=== PATIENT | female | born 1980 | race Hispanic/Latino ===

== ENCOUNTER 2017-06-07 09:31 | Emergency (ER) | payer MEDICAID, OTHER ==
[2017-06-07 10:15] LABS: BASOPHILS % (AUTO) 0.2 % (0.0-5.0); EOSINOPHILS % (AUTO) 0.4 % (0.0-8.0); HEMATOCRIT 44.1 % (36-48); LYMPHOCYTES % (AUTO) 15.6 % (21.0-51.0); MEAN CORPUSCULAR HEMOGLOBIN 29.8 pg (27.0-33.0); MEAN CORPUSCULAR HGB CONC 34.1 g/dL (32.0-36.0); MEAN CORPUSCULAR VOLUME 87.4 fL (79-99); MONOCYTES % (AUTO) 6.2 % (3.0-13.0); NEUTROPHILS % (AUTO) 77.6 % (40.0-77.0); PLATELET COUNT (AUTO) 304 K/uL (130-400); RED BLOOD CELL COUNT(AUTO) 5.04 MIL/uL (4.00-5.50); RED CELL DISTRIBUTION WIDTH 13.1 % (11.0-15.5); WHITE BLOOD COUNT (AUTO) 14.1 K/uL (4.8-10.8)
[2017-06-07 10:20] LABS: CREATININE 0.8 mg/dL (0.5-1.5); POTASSIUM 3.5 mmol/L (3.5-5.1)
[2017-06-07 10:24] LABS: APPEARANCE,URINE Clear (CLEAR); BILIRUBIN,URINE Negative (NEGATIVE); COLOR,URINE Yellow (YELLOW); GLUCOSE, URINE (UA) TRACE mg/dL (NEGATIVE); KETONES,URINE Trace mg/dL (NEGATIVE); LEUKOCYTE ESTERASE ,URINE Negative (NEGATIVE); NITRATE,URINE Negative (NEGATIVE); OCCULT BLOOD,URINE Negative (NEGATIVE); PH,URINE 5.5 (5.0-8.0); PROTEIN,URINE Negative (NEGATIVE)
[2017-06-07 10:25] LABS: HCG,QUAL RESULT NEGATIVE (NEGATIVE)
[2017-06-07 10:28] LABS: BACTERIA,URINE Rare /HPF (None Seen); MUCUS,URINE Rare LPF (None Seen); RBC,URINE 0-1 /HPF (0-1); SQUAMOUS EPITHELIAL CELL,UR Rare /LPF (0-2); WBC,URINE None Seen /HPF (0-1)
[2017-06-07] MEDS ORDERED: CLINDAMYCIN 600 MG/D5% WATER 50 ML IV ONE (11:30)
[2017-06-07] MEDS ORDERED: KETOROLAC TROMETHAMINE 30MG/ML ONE (11:30)
[2017-08-24] MEDS ORDERED: TRAZ-147 PO (08:11)
== END 2017-06-07 12:50 | disposition home or self-care (01) ==
LOC: EDH 09:31
DX: L03.221 Cellulitis of neck (principal); B95.62 Methicillin resistant Staphylococcus aureus infection as the cause of diseases classified elsewhere; I10 Essential (primary) hypertension; M79.1 Myalgia; Z88.8 Allergy status to other drugs, medicaments and biological substances
CPT/HCPCS: 36415; 70490; 80048; 81001; 81025; 85025; 96365; 96375; 99285; J1885; J3490

== ENCOUNTER 2017-08-22 18:51 | Inpatient (IN) | payer MEDICAID ==
[~2017-08-22] VITALS: Ht 154.9 cm; Wt 86.6 kg
[2017-08-22 19:28] LABS: RAPID GROUP A STREP NEGATIVE (NEGATIVE)
[2017-08-22 19:40] LABS: BASOPHILS % (AUTO) 0.3 % (0.0-5.0); EOSINOPHILS % (AUTO) 0.1 % (0.0-8.0); HEMATOCRIT 51.6 % (36-48); LYMPHOCYTES % (AUTO) 8.7 % (21.0-51.0); MEAN CORPUSCULAR HEMOGLOBIN 30.5 pg (27.0-33.0); MEAN CORPUSCULAR HGB CONC 34.6 g/dL (32.0-36.0); MEAN CORPUSCULAR VOLUME 88.3 fL (79-99); MONOCYTES % (AUTO) 2.4 % (3.0-13.0); NEUTROPHILS % (AUTO) 88.5 % (40.0-77.0); PLATELET COUNT (AUTO) 432 K/uL (130-400); RED BLOOD CELL COUNT(AUTO) 5.84 MIL/uL (4.00-5.50); RED CELL DISTRIBUTION WIDTH 13.6 % (11.0-15.5); WHITE BLOOD COUNT (AUTO) 20.4 K/uL (4.8-10.8)
[2017-08-22] MEDS ORDERED: SODIUM CHLORIDE 0.9% 1000ML 2,000 ML IV ONE (19:47)
[2017-08-22] MEDS ORDERED: ONDANSETRON HCL MDV 20ML 2 MG/ML VIAL ONE (19:47)
[2017-08-22] MEDS ORDERED: ZOSYN 3.375GM+NS 50ML 50 ML IV ONE (20:09)
[2017-08-22 20:13] LABS: INR 0.97 (0.85-1.15); PARTIAL THROMBOPLASTIN TIME 21.4 SEC (26.3-35.5); PROTHROMBIN TIME 10.2 SEC (9.6-11.6)
[2017-08-22 20:18] LABS: CARBON DIOXIDE 25 mmol/L (21-32); CHLORIDE 95 mmol/L (101-111); CREATININE 1.8 mg/dL (0.5-1.5); GLOMERULAR FILTR. RATE CALC 33 mL/min (>60); GLUCOSE,RANDOM 345 mg/dL (70-105); POTASSIUM 4.9 mmol/L (3.5-5.1); SODIUM SERUM 130 mmol/L (136-145); UREA NITROGEN, BLOOD 12 mg/dL (7-18)
[2017-08-22 20:33] LABS: ALANINE AMINOTRANSFERASE 33 U/L (12-78); ALBUMIN 3.4 g/dL (3.5-5.0); ASPARTATE AMINOTRANSFERASE 26 U/L (10-37); BILIRUBIN,TOTAL 0.3 mg/dL (0.2-1.0); CREATINE KINASE MB 0.9 ng/mL (0.5-3.6); CREATINE KINASE, TOTAL 107 U/L (21-232); MYOGLOBIN 91 ng/mL (10-92); TROPONIN I < 0.04 ng/mL (0.00-0.06)
[2017-08-22 21:29] LABS: APPEARANCE,URINE Clear (CLEAR); BILIRUBIN,URINE Negative (NEGATIVE); COLOR,URINE Yellow (YELLOW); GLUCOSE, URINE (UA) 250 mg/dL (NEGATIVE); KETONES,URINE Negative (NEGATIVE); LEUKOCYTE ESTERASE ,URINE Negative (NEGATIVE); NITRATE,URINE Negative (NEGATIVE); OCCULT BLOOD,URINE Nonhemolyzed Trace (NEGATIVE); PROTEIN,URINE POS 1+ (NEGATIVE); UROBILINOGEN,URINE 0.2 mg/dL (0.2-1.0)
[2017-08-22 21:46] LABS: BACTERIA,URINE Rare /HPF (None Seen); WBC,URINE 0-1 /HPF (0-1)
[2017-08-23 01:15] VITALS: BP 111/66
[2017-08-23] MEDS ORDERED: ACETAMINOPHEN 325 MG TAB PO PRN ×2 (02:45)
[2017-08-23] MEDS ORDERED: ONDANSETRON HCL MDV 20ML 2 MG/ML VIAL IVP PRN (02:45)
[2017-08-23 04:00] VITALS: BP 105/68
[2017-08-23] MEDS: ZOSYN 3.375GM+NS 50ML 50 ML IV SCH ×3 (04:20→18:33)
[2017-08-23 06:33] LABS: HEMATOCRIT 39.2 % (36-48); MEAN CORPUSCULAR HEMOGLOBIN 31.3 pg (27.0-33.0); MEAN CORPUSCULAR HGB CONC 35.2 g/dL (32.0-36.0); MEAN CORPUSCULAR VOLUME 88.8 fL (79-99); PLATELET COUNT (AUTO) 308 K/uL (130-400); RED BLOOD CELL COUNT(AUTO) 4.41 MIL/uL (4.00-5.50); RED CELL DISTRIBUTION WIDTH 13.6 % (11.0-15.5); WHITE BLOOD COUNT (AUTO) 13.7 K/uL (4.8-10.8)
[2017-08-23 06:41] LABS: POTASSIUM 3.9 mmol/L (3.5-5.1)
[2017-08-23 08:10] VITALS: BP 105/66
[2017-08-23] MEDS: FAMOTIDINE 20MG TAB 20 MG TAB PO SCH ×2 (09:58→20:23)
[2017-08-23 11:32] VITALS: BP 120/67
[2017-08-23] MEDS: SODIUM CHLORIDE 0.9% 1000ML 1,000 ML IV SCH ×2 (12:27→12:45)
[2017-08-23] MEDS ORDERED: MAG HYDROX/AL HYDROX/SIMETH ES 30 ML SUSP UDCUP PO PRN (14:00)
[2017-08-23] MEDS ORDERED: MAG HYDROX/AL HYDROX/SIMETH ES 30 ML SUSP UDCUP ONE (15:29)
[2017-08-23 15:54] VITALS: BP 132/73
[2017-08-23 20:00] VITALS: BP 122/71
[2017-08-24] VITALS (7 sets, daily range): BP systolic 103–157; BP diastolic 57–85
[2017-08-24] MEDS: SODIUM CHLORIDE 0.9% 1000ML 1,000 ML IV SCH ×3 (00:20→22:28)
[2017-08-24] MEDS: ZOSYN 3.375GM+NS 50ML 50 ML IV SCH ×2 (02:57→10:59)
[2017-08-24 05:11] LABS: BASOPHILS % (AUTO) 0.8 % (0.0-5.0); EOSINOPHILS % (AUTO) 1.5 % (0.0-8.0); HEMATOCRIT 36.4 % (36-48); MEAN CORPUSCULAR HEMOGLOBIN 31.2 pg (27.0-33.0); MEAN CORPUSCULAR HGB CONC 35.5 g/dL (32.0-36.0); MEAN CORPUSCULAR VOLUME 87.8 fL (79-99); MONOCYTES % (AUTO) 5.8 % (3.0-13.0); NEUTROPHILS % (AUTO) 52.9 % (40.0-77.0); PLATELET COUNT (AUTO) 265 K/uL (130-400); RED BLOOD CELL COUNT(AUTO) 4.14 MIL/uL (4.00-5.50); RED CELL DISTRIBUTION WIDTH 13.4 % (11.0-15.5); WHITE BLOOD COUNT (AUTO) 7.6 K/uL (4.8-10.8)
[2017-08-24 05:20] LABS: CREATININE 0.8 mg/dL (0.5-1.5); POTASSIUM 3.5 mmol/L (3.5-5.1)
[2017-08-24] MEDS: FAMOTIDINE 20MG TAB 20 MG TAB PO SCH ×2 (08:05→20:07)
[2017-08-24] MEDS ORDERED: BUPR150T3 PO (08:11)
[2017-08-24] MEDS ORDERED: TRAZ-187 PO (08:11)
[2017-08-24] MEDS ORDERED: LISI30TA4 PO (08:11)
[2017-08-24] MEDS ORDERED: GABA-531 PO (08:11)
[2017-08-24] MEDS ORDERED: METO100T14 PO (08:11)
[2017-08-24] MEDS ORDERED: TRAM50TA4 PO (08:11)
[2017-08-24] MEDS ORDERED: AMIT25TA9 PO (08:11)
[2017-08-24] MEDS ORDERED: HYDR12.54 PO (08:11)
[2017-08-24] MEDS ORDERED: METH500T6 PO (08:11)
[2017-08-24] MEDS ORDERED: METHOCARBAMOL 500MG PO PRN (08:45)
[2017-08-24] MEDS ORDERED: TRAMADOL HCL 50 MG TABLET PO PRN (08:45)
[2017-08-24] MEDS: GABAPENTIN 300 MG CAPSULE PO SCH ×3 (09:00→21:41)
[2017-08-24] MEDS: METOPROLOL TARTRATE 50 MG TAB PO SCH ×2 (09:00→20:07)
[2017-08-24] MEDS: HYDROCHLOROTHIAZIDE 25 MG TABLET PO SCH (09:00)
[2017-08-24] MEDS: LISINOPRIL 10 MG TABLET PO SCH (09:00)
[2017-08-24] MEDS: BUPROPION HCL 150 MG TABLET.SA PO SCH (09:00)
[2017-08-24] MEDS ORDERED: AMOX-429 PO (12:54)
[2017-08-24] MEDS: LEVOFLOXACIN 500 MG/D5W 100 ML 100 ML IV SCH ×2 (20:06→21:41)
[2017-08-24] MEDS: METRONIDAZOLE 500MG/100ML BAG 100 ML IV SCH (20:07)
[2017-08-24] MEDS ORDERED: AMITRIPTYLINE HCL 25 MG TABLET PO SCH (21:00)
[2017-08-24] MEDS ORDERED: TRAZODONE HCL 100 MG TABLET PO SCH (21:00)
[2017-08-25] MEDS: METRONIDAZOLE 500MG/100ML BAG 100 ML IV SCH ×2 (01:57→10:42)
[2017-08-25 04:17] VITALS: BP 130/86
[2017-08-25] MEDS: SODIUM CHLORIDE 0.9% 1000ML 1,000 ML IV SCH ×2 (04:45→14:45)
[2017-08-25 08:00] VITALS: BP 109/60
[2017-08-25] MEDS: HYDROCHLOROTHIAZIDE 25 MG TABLET PO SCH (09:00)
[2017-08-25] MEDS: LISINOPRIL 10 MG TABLET PO SCH (09:00)
[2017-08-25] MEDS: METOPROLOL TARTRATE 50 MG TAB PO SCH (09:00)
[2017-08-25] MEDS: FAMOTIDINE 20MG TAB 20 MG TAB PO SCH (10:42)
[2017-08-25] MEDS: GABAPENTIN 300 MG CAPSULE PO SCH ×2 (10:42→15:05)
[2017-08-25] MEDS: BUPROPION HCL 150 MG TABLET.SA PO SCH (10:42)
[2017-08-25 11:26] VITALS: BP 97/62
[2017-08-25 16:00] VITALS: BP 109/74
== END 2017-08-25 19:05 | disposition home or self-care (01) | DRG 720 ==
LOC: EDH 18:51 → OBSVTOIN 18:52 → EDHIP 18:52 → 3DH 23:33
PROVIDERS: ADMIT Family Medicine; ATTEND Family Medicine
DX: A41.9 Sepsis, unspecified organism (principal); R57.1 Hypovolemic shock; N17.9 Acute kidney failure, unspecified; A04.72 Enterocolitis due to Clostridium difficile, not specified as recurrent; T80.92XA Unspecified transfusion reaction, initial encounter; E66.9 Obesity, unspecified; B96.20 Unspecified Escherichia coli [E. coli] as the cause of diseases classified elsewhere; I10 Essential (primary) hypertension; M79.7 Fibromyalgia; Y84.8 Other medical procedures as the cause of abnormal reaction of the patient, or of later complication, without mention of misadventure at the time of the procedure; F32.9 Major depressive disorder, single episode, unspecified; Z88.8 Allergy status to other drugs, medicaments and biological substances; Z68.36 Body mass index [BMI] 36.0-36.9, adult
CPT/HCPCS: 36415; 71045; 80048; 80053; 81001; 82550; 82553; 83605; 83874; 84484; 85025; 85027; 85610; 85730; 87040; 87088; 87507; 87804; 87880; 93005; 99291; J1956; J2543; J3490; J7030

== ENCOUNTER 2018-11-02 01:46 | Emergency (ER) | payer MEDICAID ==
[~2018-11-02 01:46] MED LIST: AMIT25TA9 PO; AMOX-429 PO; BUPR150T3 PO; GABA-531 PO; HYDR12.54 PO; LISI30TA4 PO; METH500T6 PO; METO100T14 PO; TRAM50TA4 PO; TRAZ-187 PO
[2018-11-02] MEDS ORDERED: SULFAMETHOX-TMP DS 800/160 TAB ONE (02:05)
[2018-11-02] MEDS ORDERED: CEPHALEXIN 500 MG CAPSULE ONE (02:05)
== END 2018-11-02 02:12 | disposition home or self-care (01) ==
LOC: EDH 01:46
DX: L03.311 Cellulitis of abdominal wall (principal); I10 Essential (primary) hypertension; E11.9 Type 2 diabetes mellitus without complications; M79.7 Fibromyalgia; F32.9 Major depressive disorder, single episode, unspecified; Z88.8 Allergy status to other drugs, medicaments and biological substances; Z98.890 Other specified postprocedural states

== ENCOUNTER 2018-11-03 21:02 | Emergency (ER) | payer MEDICAID ==
[2018-11-03] MEDS ORDERED: CLINDAMYCIN HCL 150 MG CAP ONE (22:25)
== END 2018-11-03 22:29 | disposition home or self-care (01) ==
LOC: EDH 21:02
DX: L02.211 Cutaneous abscess of abdominal wall (principal); L03.311 Cellulitis of abdominal wall; I10 Essential (primary) hypertension; E11.9 Type 2 diabetes mellitus without complications; F32.9 Major depressive disorder, single episode, unspecified; Z98.890 Other specified postprocedural states; Z88.8 Allergy status to other drugs, medicaments and biological substances
CPT/HCPCS: 10060

== ENCOUNTER 2019-11-25 16:38 | Emergency (ER) | payer MEDICAID ==
[2019-11-25 17:29] LABS: APPEARANCE,URINE Cloudy (CLEAR); BILIRUBIN,URINE Negative (NEGATIVE); COLOR,URINE Yellow (YELLOW); GLUCOSE, URINE (UA) 250 mg/dL (NEGATIVE); KETONES,URINE Trace mg/dL (NEGATIVE); LEUKOCYTE ESTERASE ,URINE Negative (NEGATIVE); NITRATE,URINE Negative (NEGATIVE); OCCULT BLOOD,URINE Negative (NEGATIVE); PROTEIN,URINE POS 1+ mg/dL (NEGATIVE)
[2019-11-25 17:38] LABS: HCG,QUAL RESULT NEGATIVE (NEGATIVE)
[2019-11-25] MEDS ORDERED: DiphenhydrAMINE HCL 50 MG/ML VIAL ONE (17:41)
[2019-11-25] MEDS ORDERED: KETOROLAC TROMETHAMINE 30MG/ML ONE (17:42)
[2019-11-25] MEDS ORDERED: DEXAMETHASONE SOD PHOSPHATE 4 MG/ML 1ML VIAL ONE (17:42)
[2019-11-25 17:46] LABS: BACTERIA,URINE Few /HPF (None Seen); MUCUS,URINE Moderate LPF (None Seen); RBC,URINE 0-1 /HPF (0-1); SQUAMOUS EPITHELIAL CELL,UR Few /HPF (0-2); WBC,URINE 0-1 /HPF (0-1)
[2019-11-25 18:00] LABS: AMPHET/METH SCREEN,URINE NEGATIVE (NEGATIVE); BARBITURATE SCREEN, URINE NEGATIVE (NEGATIVE); BENZODIAZEPINES SCREEN,URINE NEGATIVE (NEGATIVE); CANNABINOID SCREEN,URINE NEGATIVE (NEGATIVE); COCAINE SCREEN,URINE NEGATIVE (NEGATIVE); OPIATE SCREEN,URINE NEGATIVE (NEGATIVE); PHENCYCLIDINE SCREEN,URINE NEGATIVE (NEGATIVE)
== END 2019-11-25 19:07 | disposition home or self-care (01) ==
LOC: EDH 16:38
DX: R51 Headache (principal); E11.65 Type 2 diabetes mellitus with hyperglycemia; F32.9 Major depressive disorder, single episode, unspecified; I10 Essential (primary) hypertension; Z87.891 Personal history of nicotine dependence; Z88.2 Allergy status to sulfonamides; Z88.1 Allergy status to other antibiotic agents
CPT/HCPCS: 80305; 81001; 81025; 82948; 93005; 96361; 96374; 96375; 99284; J1100; J1200; J1885

== ENCOUNTER 2022-01-29 23:10 | Emergency (ER) | payer MEDICAID ==
[~2022-01-29] VITALS: Ht 154.9 cm; Wt 72.6 kg
[~2022-01-29 23:10] MED LIST changes: +METH-811 PO; -METH500T6 PO
[2022-01-29 23:34] VITALS: BP 145/75
== END 2022-01-30 00:13 | disposition home or self-care (01) ==
LOC: EDH 23:10
DX: F41.9 Anxiety disorder, unspecified (principal); I10 Essential (primary) hypertension; M19.90 Unspecified osteoarthritis, unspecified site; F32.A Depression, unspecified; E11.9 Type 2 diabetes mellitus without complications; M79.7 Fibromyalgia; Z79.899 Other long term (current) drug therapy; Z88.8 Allergy status to other drugs, medicaments and biological substances; Z88.1 Allergy status to other antibiotic agents; Z88.2 Allergy status to sulfonamides

== ENCOUNTER 2023-05-27 23:25 | Emergency (ER) | payer MEDICAID, MEDICARE ==
[~2023-05-27] VITALS: Ht 154.9 cm; Wt 69.4 kg
[2023-05-28 00:01] LABS: HCG,QUALITATIVE URINE NEGATIVE (NEGATIVE)
[2023-05-28 00:02] LABS: BASOPHILS # (AUTO) 0.06 K/uL (0.00-0.20); BASOPHILS % (AUTO) 0.9 % (0.0-5.0); EOSINOPHILS # (AUTO) 0.03 K/uL (0.00-0.70); EOSINOPHILS % (AUTO) 0.4 % (0.0-8.0); HEMATOCRIT 42.7 % (36-48); IMMATURE GRANULOCYTE ABSOLUTE 0.05 K/uL (0-1); LYMPHOCYTES # (AUTO) 1.8 K/uL (1.0-4.8); LYMPHOCYTES % (AUTO) 25.1 % (21.0-51.0); MEAN CORPUSCULAR HEMOGLOBIN 32.1 pg (27.0-33.0); MEAN CORPUSCULAR HGB CONC 34.7 g/dL (32.0-36.0); MEAN CORPUSCULAR VOLUME 92.6 fL (79-99); MONOCYTES # (AUTO) 0.5 K/uL (0.1-1.0); MONOCYTES % (AUTO) 7.6 % (3.0-13.0); NEUTROPHILS # (AUTO) 4.6 K/uL (1.8-7.7); NEUTROPHILS % (AUTO) 65.3 % (40.0-77.0); PLATELET COUNT (AUTO) 415 K/uL (130-400); RED BLOOD CELL COUNT(AUTO) 4.61 MIL/uL (4.00-5.50); RED CELL DISTRIBUTION WIDTH 12.8 % (11.0-15.5)
[2023-05-28 00:12] LABS: CREATININE 0.6 mg/dL (0.5-1.5); POTASSIUM 4.1 mmol/L (3.5-5.1)
[2023-05-28 00:17] LABS: ALBUMIN 3.7 g/dL (3.5-5.0); BILIRUBIN,TOTAL 0.4 mg/dL (0.2-1.0); TOTAL PROTEIN, SERUM 7.4 g/dL (6.0-8.3)
[2023-05-28 00:39] LABS: ADD UA MICROSCOPIC YES; APPEARANCE,URINE CLEAR (CLEAR); BILIRUBIN,URINE NEGATIVE (NEGATIVE); COLOR,URINE Light-Yellow (YELLOW); GLUCOSE, URINE (UA) >=1000 mg/dL (NEGATIVE); KETONES,URINE 150 mg/dL (NEGATIVE); LEUKOCYTE ESTERASE ,URINE NEGATIVE Leu/uL (NEGATIVE); NITRATE,URINE NEGATIVE (NEGATIVE); OCCULT BLOOD,URINE NEGATIVE (NEGATIVE); PH,URINE 5.5 (5.0-8.0); PROTEIN,URINE NEGATIVE (NEGATIVE); UROBILINOGEN,URINE 0.2 mg/dL (0.2-1.0)
[2023-05-28 00:40] LABS: MUCUS,URINE RARE LPF (None Seen); RBC,URINE 0-1 /HPF (0-1); SQUAMOUS EPITHELIAL CELL,UR RARE /HPF (0-2); WBC,URINE 0-1 /HPF (0-1)
[2023-05-28 00:46] LABS: B-TYPE NATRIURETIC PEPTIDE 10 pg/mL (0-100)
[2023-05-28 02:13] VITALS: BP 148/79; PULSE 70; RESP 18; O2SAT 98
== END 2023-05-28 02:13 | disposition home or self-care (01) ==
LOC: EDH 23:25
DX: I10 Essential (primary) hypertension (principal); R51.9 Headache, unspecified; F41.9 Anxiety disorder, unspecified; E11.9 Type 2 diabetes mellitus without complications; F32.A Depression, unspecified; M79.7 Fibromyalgia; F17.200 Nicotine dependence, unspecified, uncomplicated; M19.90 Unspecified osteoarthritis, unspecified site; Z79.899 Other long term (current) drug therapy; Z98.890 Other specified postprocedural states; Z88.1 Allergy status to other antibiotic agents; Z88.2 Allergy status to sulfonamides; Z88.8 Allergy status to other drugs, medicaments and biological substances
CPT/HCPCS: 36415; 71045; 80053; 81001; 81025; 83880; 84484; 85025; 93005

== ENCOUNTER 2024-04-01 08:55 | Emergency (ER) | payer OTHER, MEDICARE ==
[~2024-04-01] VITALS: Ht 154.9 cm; Wt 64.9 kg
[~2024-04-01 08:55] MED LIST changes: -AMIT25TA9 PO; -AMOX-429 PO; -METO100T14 PO; -TRAM50TA4 PO
[2024-04-01 08:56] VITALS: BP 220/123; TEMP 97.8
[2024-04-01 09:34] LABS: BASOPHILS # (AUTO) 0.04 K/uL (0.00-0.20); BASOPHILS % (AUTO) 0.6 % (0.0-5.0); EOSINOPHILS # (AUTO) 0.04 K/uL (0.00-0.70); EOSINOPHILS % (AUTO) 0.6 % (0.0-8.0); HEMATOCRIT 40.5 % (36-48); IMMATURE GRANULOCYTE ABSOLUTE 0.02 K/uL (0-1); LYMPHOCYTES # (AUTO) 1.9 K/uL (1.0-4.8); LYMPHOCYTES % (AUTO) 28.1 % (21.0-51.0); MEAN CORPUSCULAR HGB CONC 35.6 g/dL (32.0-36.0); MEAN CORPUSCULAR VOLUME 87.3 fL (79-99); MONOCYTES # (AUTO) 0.5 K/uL (0.1-1.0); MONOCYTES % (AUTO) 6.8 % (3.0-13.0); NEUTROPHILS # (AUTO) 4.3 K/uL (1.8-7.7); NEUTROPHILS % (AUTO) 63.6 % (40.0-77.0); PLATELET COUNT (AUTO) 280 K/uL (130-400); RED BLOOD CELL COUNT(AUTO) 4.64 MIL/uL (4.00-5.50); RED CELL DISTRIBUTION WIDTH 12.8 % (11.0-15.5); WHITE BLOOD COUNT (AUTO) 6.7 K/uL (4.8-10.8)
[2024-04-01 09:38] LABS: CREATININE 0.6 mg/dL (0.5-1.0); POTASSIUM 3.6 mmol/L (3.5-5.1)
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
--- NOTE | 2024-04-01 09:46 | NUR ---
PT CURRENTLY IN RADIOLOGY
--- NOTE | 2024-04-01 10:22 | EKG ---
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
--- NOTE | 2024-04-01 12:40 | NUR ---
RADIOLOGY NOW COMPLETE. ED MD INFORMED
[2024-04-01] MEDS ORDERED: NAPR-1505 PO (12:51)
--- NOTE | 2024-04-01 12:57 | NUR ---
PT CERVICAL COLLAR REMOVED PER ED MD MACDONALD. NO CERVICAL STEP OFFS NOTED NOR PALPATED.
[2024-04-01 13:03] VITALS: PULSE 96; RESP 20; O2SAT 98
== END 2024-04-01 13:12 | disposition home or self-care (01) ==
LOC: EDH 08:55
DX: S39.012A Strain of muscle, fascia and tendon of lower back, initial encounter (principal); S16.1XXA Strain of muscle, fascia and tendon at neck level, initial encounter; E11.9 Type 2 diabetes mellitus without complications; E78.00 Pure hypercholesterolemia, unspecified; F17.200 Nicotine dependence, unspecified, uncomplicated; I10 Essential (primary) hypertension; M19.90 Unspecified osteoarthritis, unspecified site; M79.7 Fibromyalgia; Z79.899 Other long term (current) drug therapy; Z88.1 Allergy status to other antibiotic agents; Z88.2 Allergy status to sulfonamides; V89.2XXA Person injured in unspecified motor-vehicle accident, traffic, initial encounter; Y93.89 Activity, other specified; Y92.89 Other specified places as the place of occurrence of the external cause; Y99.8 Other external cause status
CPT/HCPCS: 36415; 72040; 80048; 84484; 85025; 93005; 99285